=== PATIENT | male | born 2000 | race Caucasian/White ===

== ENCOUNTER 2024-08-23 04:52 | Inpatient (IN) | payer OTHER, SELFPAY ==
[2024-08-23 05:12] VITALS: BP 141/70; PULSE 128; RESP 18; O2SAT 98; BMI 22.3
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
[2024-08-23 06:00] LABS: MANUAL DIFF FLAG NO
[2024-08-23 06:04] LABS: Basophils Percent Auto 0.3 % (0-2); Eosinophils Percent Auto 0.2 % (0-4); Hematocrit 41.5 % (42.0-52.0); Hemoglobin 14.4 g/dl (14.0-18.0); Imm Gran Abs Auto 0.03 X10*3/uL (0.00-0.03); Imm Gran Pct Auto 0.3 % (0.0-0.4); Lymphocytes Absolute Auto 0.7 X10*3/uL (1.2-4.9); Lymphocytes Percent Auto 7.2 % (20-40); Mean Corpuscular HGB Conc 34.7 g/dl (31.0-36.0); Mean Corpuscular Hemoglobin 29.9 pg (27.0-33.0); Mean Corpuscular Volume 86.1 fL (80.0-98.0); Mean Platelet Volume 8.9 fL (9.4-12.4); Monocytes Absolute Auto 0.6 X10*3/uL (0.1-1.2); Monocytes Percent Auto 5.9 % (2-11); Neutrophils Percent Auto 86.1 % (45-73); Platelet Count 244 X10*3/uL (160-400); Red Blood Count 4.82 X10*6/uL (4.60-5.80); Red Cell Distribution Width 12.3 % (11.0-16.0); White Blood Count 9.3 X10*3/uL (4.8-10.8)
[2024-08-23 06:27] LABS: Alanine Aminotransferase 26 U/L (0-40); Albumin Level 4.6 g/dL (3.5-5.0); Alkaline Phosphatase 59 U/L (39-117); Anion Gap 14 (12-20); Aspartate Amino Transferase 23 U/L (5-37); Bilirubin Total 0.3 mg/dL (0.0-1.0); Blood Urea Nitrogen 14 mg/dL (9-16); Calcium 9.3 mg/dL (8.4-10.2); Carbon Dioxide 23 mmol/L (22-29); Chloride 106 mmol/L (96-108); Creatinine Clr Calc Pharmacy 152.8; Estimated Glomerular Filt Rate > 60; Ethanol 33 mg/dL; Glucose Random 87 mg/dL (60-115); Potassium 4.4 mmol/L (3.3-5.1); Sodium 139 mmol/L (135-145); Total Protein 8.1 g/dL (6.5-8.0)
[2024-08-23 06:27] LABS: Acetaminophen LAB < 3 mcg/mL (<30); Salicylate < 5.0 mg/dL (15-30)
[2024-08-23 06:52] LABS: Amphetamine Screen Urine Not Detected (Not Detect); Barbiturates, Urine Not Detected (Not Detect); Benzodiazepines Screen Urine Not Detected (Not Detect); Buprenorphine Scr Not Detected (Not Detect); Cannabinoid Screen Urine POSITIVE (Not Detect); Cocaine Screen Urine Not Detected (Not Detect); Fentanyl, urine Not Detected (Not Detect); Methadone Screen, Urine Not Detected (Not Detect); Opiate Screen Urine Not Detected (Not Detect); Oxycodone Screen Urine Not Detected (Not Detect); Phencyclidine Screen Urine Not Detected (Not Detect)
[2024-08-23] MEDS: Nicotine Polacrilex 2 MG GUM BUCCAL ×4 (07:38→18:41)
--- NOTE | 2024-08-23 07:45 | PC.NURSE ---
patient seems anxious and pacing to bathroom a lot. provided breakfast and this RN spoke with patient, pt reports he feels waiting and being in hallway is not helping my situation Patient offered medication to help ease anxiety and agreeable. Pt also provided nicotine gum requested.
[2024-08-23] MEDS: LORazepam 1 MG TABLET PO ×2 (08:09→16:30)
--- NOTE | 2024-08-23 09:36 | PC.NURSE ---
pt sleeping on stretcher. even unlabored respirations
--- NOTE | 2024-08-23 13:09 | PC.NURSE ---
patient using hospital phone to talk to jackie adams. Patent remains calm and cooperative at this time.
--- NOTE | 2024-08-23 13:56 | PC.NURSE ---
jackie adams is at bedside visiting with patient and brought lunch. angie appears to be very invovled in patients psych care and helping him at home and a good support. Pt seems comfortable with him around and is smiling and conversing.
[2024-08-23 14:41] VITALS: BP 141/72; PULSE 100; RESP 18; TEMP 36.5; O2SAT 98
--- NOTE | 2024-08-23 16:47 | PC.NURSE ---
Assumed care of patient at 1640, pt upset about being placed in the BH pod is agreeable at this time. Pt provided with Ativan PO per JACQUELINE Mast. Patient did come over to the pod with a smart watch on, this RN removed watch, pt slightly agitated that he is having the watch taken away
[2024-08-24] MEDS: Nicotine Polacrilex 2 MG GUM BUCCAL ×9 (02:03→17:46)
[2024-08-24] MEDS: LORazepam 1 MG TABLET 2 MG PO (03:44)
--- NOTE | 2024-08-24 03:46 | PC.NURSE ---
pt verbalizing having difficulty falling asleep - requesting medication. provider notified/aware. medication administered per provider order. effectiveness pending. pt otherwise resting in bed in no apparent distress while watching tv. respirations even/unlabored. pt remains inpatient bed search. plan of care ongoing.
[2024-08-24 03:50] VITALS: BP 123/66; PULSE 82; RESP 14; TEMP 37.1; O2SAT 97
--- NOTE | 2024-08-24 04:20 | PC.NURSE ---
pt requesting prn nicotine gum. medication administered per provider order.
[2024-08-24 09:12] LABS: Appearance Urine Clear; Color Urine Yellow; Glucose Urine UA Negative (Negative); Leukocyte Esterase Urine Negative (Negative); Nitrite Urine Negative (Negative); PH 7.5 (5.0-9.0); Specific Gravity - Urine 1.025 (1.005-1.025); Urine Blood Negative (Negative); Urine Ketones Negative (Negative); Urine Protein Negative (Neg-Trace)
--- NOTE | 2024-08-24 10:17 | PHA.MEDREC ---
Addendum entered by Irina Miller RPh 08/24/24 11:54: reviewed by [facility]. Original Note: Pharmacy Consult ? Medication Reconciliation Pharmacy reviewed med rec done by nursing. No Known Home Meds confirmed and looking in claims that matches.
--- NOTE | 2024-08-24 13:36 | MHC.CARE ---
Late Entry; CARE Team met with Pt at his request who is requesting to discharged. T/w provided education to Pt and friend who was present, that Pt was assessed and found IPLOC. T/w notifed Dr. Santana that Pt was requesting to leave. Dr. Santana aware of CARE Team clinical recommendations at this time and Pt will continue to be a IPLOC bedsearch.
--- NOTE | 2024-08-24 14:20 | MHC.CARE ---
CARE Team spoke with Pts friend Fuad, who reported concerns related to hx of pyschaitric medication in the past that exacerbated his mental health symptoms i/e Prozac and Wellbutrin.
[2024-08-24 17:58] VITALS: BP 129/79; PULSE 92; RESP 13; TEMP 36.7; O2SAT 96
[2024-08-24] MEDS: Nicotine Polacrilex 2 MG GUM 4 MG BUCCAL ×2 (19:44→21:55)
[2024-08-24 21:15] VITALS: BP 140/77; PULSE 72; RESP 18; TEMP 36.8; O2SAT 97; BMI 20.7
[2024-08-24] MEDS: hydrOXYzine HCL 25 MG TABLET PO (23:39)
[2024-08-25] MEDS: Nicotine Polacrilex 2 MG GUM 4 MG BUCCAL ×2 (00:06→11:41)
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
[2024-08-25 08:00] VITALS: BP 121/61; PULSE 71; RESP 16; TEMP 36.4; O2SAT 97
[2024-08-25 08:26] LABS: Estimated Average Glucose 105 mg/dL; Hemoglobin A1C 132.8187 umol/L; Hemoglobin A1c % 5.3 % (<6.0); Total Hemoglobin (HGBA1C) 3822.3524 umol/L
[2024-08-25 08:33] LABS: Cholesterol 152 mg/dL (<200); HDL Cholesterol 62 mg/dL (>40); LDL Cholesterol Calculated 77 mg/dL (<100); Triglycerides 66 mg/dL (<150)
[2024-08-25 08:47] LABS: TSH reflex Free T4 0.74 uIU/mL (0.32-4.0)
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
[2024-08-25] MEDS: Venlafaxine HCl ER 37.5 MG CAP.ER.24H PO (11:37)
--- NOTE | 2024-08-25 13:44 | PC.NURSE ---
Received phone call from Derrell from security. Pts phone and clothing have been located. I went down to security to retrieve it. Rauls friend Fuad was there to bring belongings home. I brought the phone and belongings up to the unit for Chang to identify the phone and belongings. Chang states Fuad can take home cell phone and belongings. All items, phone and belongings, were sent home with Fuad.
[2024-08-25 20:00] VITALS: BP 111/69; PULSE 69; RESP 16; TEMP 36.4; O2SAT 93
[2024-08-25] MEDS: traZODone HCL 50 MG TABLET PO (20:18)
[2024-08-26] MEDS: traZODone HCL 50 MG TABLET PO (01:45)
[2024-08-26 08:00] VITALS: BP 122/66; PULSE 77; RESP 16; TEMP 36.4; O2SAT 97
[2024-08-26] MEDS: Venlafaxine HCl ER 37.5 MG CAP.ER.24H PO (08:24)
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
== END 2024-08-26 11:18 | disposition home or self-care (01) | DRG 885 ==
LOC: HO.ED 16:45 → HO.PM5 08-24 18:08
PROVIDERS: Admitting Provider Psychiatry & Neurology Psychiatry; Emergency Provider Emergency Medicine; Visit Provider Psychiatry & Neurology Psychiatry
DX: F33.2 Major depressive disorder, recurrent severe without psychotic features (principal); F17.210 Nicotine dependence, cigarettes, uncomplicated; Y90.1 Blood alcohol level of 20-39 mg/100 ml; Z63.4 Disappearance and death of family member; Z91.51 Personal history of suicidal behavior; Z71.6 Tobacco abuse counseling; Z79.899 Other long term (current) drug therapy
CPT/HCPCS: 36415; 80053; 80061; 80143; 80179; 80307; 81003; 83036; 84443; 85025; 99285; S9485

== ENCOUNTER → 2024-08-24 18:00 | Outpatient (BNV) | payer OTHER, SELFPAY | PROVIDERS: Admitting Provider Psychiatry & Neurology Psychiatry; Emergency Provider Emergency Medicine; Visit Provider Psychiatry & Neurology Psychiatry | DX: F33.2 Major depressive disorder, recurrent severe without psychotic features (principal) | CPT/HCPCS: 90792; 99239; 99499 ==

== ENCOUNTER → 2025-03-13 20:32 | Outpatient (BNV) | payer OTHER, SELFPAY | PROVIDERS: Visit Provider Student in an Organized Health Care Education/Training Program | DX: S00.03XA Contusion of scalp, initial encounter (principal) | CPT/HCPCS: 70450 ==

== ENCOUNTER 2025-03-13 21:07 | Emergency (ER) | payer OTHER, SELFPAY ==
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
[2025-03-13 21:19] VITALS: BP 124/74; PULSE 82; RESP 20; TEMP 36.7; O2SAT 96; BMI 21.5
[2025-03-13 22:09] LABS: MANUAL DIFF FLAG NO
[2025-03-13 22:10] LABS: Hematocrit 39.0 % (42.0-52.0); Hemoglobin 13.5 g/dl (14.0-18.0); Imm Gran Abs Auto 0.02 X10*3/uL (0.00-0.03); Imm Gran Pct Auto 0.3 % (0.0-0.4); Lymphocytes Absolute Auto 1.9 X10*3/uL (1.2-4.9); Mean Corpuscular HGB Conc 34.6 g/dl (31.0-36.0); Mean Corpuscular Hemoglobin 30.3 pg (27.0-33.0); Mean Corpuscular Volume 87.6 fL (80.0-98.0); NRBC Abs Auto 0.000 X10*3/uL (0.0-0.012); NRBC Pct Auto 0.0 /100WBC (0.0-0.2); Platelet Count 247 X10*3/uL (160-400); Red Blood Count 4.45 X10*6/uL (4.60-5.80); White Blood Count 6.6 X10*3/uL (4.8-10.8)
[2025-03-13 22:24] LABS: Anion Gap 17 (12-20); Blood Urea Nitrogen 17 mg/dL (9-16); Calcium 9.1 mg/dL (8.4-10.2); Carbon Dioxide 25 mmol/L (22-29); Chloride 105 mmol/L (96-108); Creatinine Clr Calc Pharmacy 122.9; Estimated Glomerular Filt Rate > 60; Potassium 4.7 mmol/L (3.3-5.1); Sodium 142 mmol/L (135-145)
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
[2025-03-14 00:44] LABS: Alanine Aminotransferase 25 U/L (0-40); Albumin Level 4.6 g/dL (3.5-5.0); Alkaline Phosphatase 80 U/L (39-117); Aspartate Amino Transferase 24 U/L (5-37); Lipase 17 U/L (8-78); Total Protein 7.3 g/dL (6.5-8.0)
[2025-03-14] MEDS: Lidocaine HCl 1 % MPF 5 ML VIAL SUBCUT (00:50)
[2025-03-14 02:02] VITALS: BP 126/68; PULSE 83; RESP 18; TEMP 36.4; O2SAT 97
[2025-03-14 02:03] VITALS: BP 126/68; PULSE 83; RESP 18; TEMP 36.4; O2SAT 97
== END 2025-03-14 02:03 | disposition home or self-care (01) ==
PROVIDERS: Emergency Provider Emergency Medicine
DX: S00.31XA Abrasion of nose, initial encounter (principal); S30.810A Abrasion of lower back and pelvis, initial encounter; S80.812A Abrasion, left lower leg, initial encounter; M54.2 Cervicalgia; R07.89 Other chest pain; R40.2410 Glasgow coma scale score 13-15, unspecified time; F17.210 Nicotine dependence, cigarettes, uncomplicated; V28.49XA Other motorcycle driver injured in noncollision transport accident in traffic accident, initial encounter; Y93.9 Activity, unspecified; Y92.410 Unspecified street and highway as the place of occurrence of the external cause; Y99.8 Other external cause status; Z79.899 Other long term (current) drug therapy
CPT/HCPCS: 12002; 36415; 70450; 70486; 71045; 72125; 73590; 80048; 80076; 83690; 85025; 99283; 99284; J2003

== ENCOUNTER → 2025-03-14 00:02 | Outpatient (BNV) | payer OTHER, SELFPAY | PROVIDERS: Emergency Provider Emergency Medicine; Visit Provider Radiology Diagnostic Radiology | DX: M50.30 Other cervical disc degeneration, unspecified cervical region (principal); R22.0 Localized swelling, mass and lump, head; R07.89 Other chest pain; M79.604 Pain in right leg | CPT/HCPCS: 70486; 71045; 72125; 73590 ==